=== PATIENT | female | born 1945 ===

== ENCOUNTER 2016-06-07 06:59 | Day surgery (SDC) | payer MEDICARE ==
--- NOTE | ~2016-06-07 | EGD ---
EGD REPORT [facility] [address] [place] [address] NAME: YAMILETH DIAL : [birth year] STATUS : REG [facility] PAT#: [id number] AGE: 70 ADM/REG DATE : 06/07/16 MR#: [id number] REPORT SERV DATE: 06/07/16 DICTATED BY: RONNI DUARTE DATE: 06/07/16 REPORT STATUS : Draft TRANSCRIBED BY: [employer] DATE: 06/07/16 [facility] Patient Name: Yamileth Dial Date of : 1945 Attending MD: RONNI DUARTE MD Procedure Date No Time: 06/07/2016 Procedure: Upper GI endoscopy Indications: Epigastric abdominal pain, Dysphagia Medicines: Propofol per Anesthesia Complications: No immediate complications. Procedure: Pre-Anesthesia Assessment: - ASA Grade Assessment: II - A patient with mild systemic disease. After obtaining informed consent, the endoscope was passed under direct vision. Throughout the procedure, the patient's blood pressure, pulse, and oxygen saturations were monitored continuously. The GIF [id number] was introduced through the mouth, and advanced to the second part of duodenum. The upper GI endoscopy was accomplished without difficulty. The patient tolerated the procedure well. Findings: The examined esophagus was normal. Diffuse mild inflammation characterized by erosions and erythema was found in the stomach. Biopsies were taken with a cold forceps for histology. The examined duodenum was normal. Impression: - Normal esophagus. - Chronic gastritis. Biopsied. - Normal examined duodenum. Recommendation: - Discharge patient to home (ambulatory). - Discharge patient to home. Procedure Code(s): --- Professional --- 39999, Esophagogastroduodenoscopy, flexible, transoral; with biopsy, single or multiple Diagnosis Code(s): --- Professional --- K29.50, Unspecified chronic gastritis without bleeding R10.13, Epigastric pain R13.10, Dysphagia, unspecified EGD REPORT [facility] [address] [facility] [place] [address] NAME: YAMILETH DIAL : [birth year] STATUS : REG [facility] PAT#: [id number] AGE: 70 ADM/REG DATE : 06/07/16 MR#: [id number] REPORT SERV DATE: 06/07/16 DICTATED BY: RONNI DUARTE. DATE: 06/07/16 REPORT STATUS : Draft TRANSCRIBED BY: [employer] DATE: 06/07/16 CPT copyright 2013 [employer]. All rights reserved. The codes documented in this report are preliminary and upon methods and procedures analyst review may be revised to meet current compliance requirements. Ronni Duarte MD RONNI DUARTE MD 06/07/2016 8:35 AM This report has been signed electronically. Number of Addenda: 0 Note Initiated On: 06/07/2016 8:21 AM Scope Withdrawal Time 0 hours 0 minutes 0 seconds [address] [facility] [address] [place] [address]
--- NOTE | ~2016-06-07 | EGD ---
EGD REPORT [facility] [address] [address] NAME: YAMILETH DIAL : [birth year] [place] [facility] [place]#: [id number] AGE: 70 ADM/REG DATE : 06/07/16 MR#: [id number] REPORT SERV DATE: 06/07/16 DICTATED BY: RONNI DUARTE DATE: 06/07/16 REPORT STATUS : Draft TRANSCRIBED BY: [employer] DATE: 06/07/16 Endoscopy Center Patient Name: Yamileth Dial Date of : 1945 Attending MD: RONNI DUARTE MD Procedure Date No Time: 06/07/2016 Procedure: Colonoscopy Indications: Chronic diarrhea Medicines: Propofol per Anesthesia Complications: No immediate complications. Procedure: Pre-Anesthesia Assessment: - ASA Grade Assessment: II - A patient with mild systemic disease. After I obtained informed consent, the scope was passed under direct vision. Throughout the procedure, the patient's blood pressure, pulse, and oxygen saturations were monitored continuously. The CF [id number] was introduced through the anus and advanced to the ileocolonic anastomosis. The colonoscopy was performed without difficulty. The patient tolerated the procedure well. The quality of the bowel preparation was good. Findings: There was ilosigmoid anastomosis seen at 50 cm. The perianal and digital rectal examinations were normal. Internal hemorrhoids were found during retroflexion and were Grade I (internal hemorrhoids that do not prolapse). Impression: - Internal hemorrhoids. Recommendation: - Discharge patient to home (ambulatory). - Discharge patient to home (ambulatory). - Return to nurse practitioner in 3 weeks. Analpram cream HC apply to anal area bid. Procedure Code(s): --- Professional --- 46906, Colonoscopy, flexible, proximal to splenic flexure; diagnostic, with or without collection of specimen(s) by brushing or washing, with or without colon decompression (separate procedure) Diagnosis Code(s): --- Professional --- K64.0, First degree hemorrhoids K52.9, Noninfective gastroenteritis and colitis, unspecified EGD REPORT [facility] [address] [place]. [address] NAME: YAMILETH DIAL : [birth year] STATUS : REG [facility]#: [id number] AGE: 70 ADM/REG DATE : 06/07/16 MR#: [id number] REPORT SERV DATE: 06/07/16 DICTATED BY: RONNI DUARTE. DATE: 06/07/16 REPORT STATUS : Draft TRANSCRIBED BY: [employer] DATE: 06/07/16 CPT copyright 2013 [employer]. All rights reserved. The codes documented in this report are preliminary and upon cfa review may be revised to meet current compliance requirements. Ronni Duarte MD RONNI DUARTE MD 06/07/2016 8:44 AM This report has been signed electronically. Number of Addenda: 0 Note Initiated On: 06/07/2016 8:23 AM Scope Withdrawal Time 0 hours 0 minutes 0 seconds [address] [facility] [place] [address]
== END 2016-06-07 23:59 | disposition home or self-care (01) ==
LOC: DMU 06:59
PROVIDERS: Internal Medicine Gastroenterology
PROC: 0DJD8ZZ Inspection of Lower Intestinal Tract, Via Natural or Artificial Opening Endoscopic (ICD-10-PCS; principal; 2016-06-07 08:30)
PROC: 0DB68ZX Excision of Stomach, Via Natural or Artificial Opening Endoscopic, Diagnostic (ICD-10-PCS; 2016-06-07 08:30)
DX: K52.9 Noninfective gastroenteritis and colitis, unspecified (principal); K64.0 First degree hemorrhoids; Z88.1 Allergy status to other antibiotic agents; Z91.041 Radiographic dye allergy status; Z88.8 Allergy status to other drugs, medicaments and biological substances
CPT/HCPCS: 88305